=== PATIENT | male | born 1985 | race African-American/Black ===

== ENCOUNTER 2018-03-18 03:45 | Emergency (ER) | payer SELFPAY ==
[~2018-03-18] VITALS: Ht 190.5 cm; Wt 76.0 kg
[2018-03-18 03:47] VITALS: BP 129/76
== END 2018-03-18 04:16 | disposition home or self-care (01) ==
LOC: ED 04:10
DX: L98.499 Non-pressure chronic ulcer of skin of other sites with unspecified severity (principal)
CPT/HCPCS: 99283